=== PATIENT | female | born 1975 | race Caucasian/White ===

== ENCOUNTER 2017-06-22 09:15 | Outpatient (CLI) | payer OTHER | END 2017-06-22 14:50 | disposition home or self-care (01) | LOC: RAD 09:15 | DX: M99.01 Segmental and somatic dysfunction of cervical region (principal); M99.02 Segmental and somatic dysfunction of thoracic region; M99.03 Segmental and somatic dysfunction of lumbar region ==

== ENCOUNTER 2020-04-17 12:33 | Outpatient (CLI) | payer OTHER | END 2020-04-17 12:43 | disposition home or self-care (01) | LOC: RAD 12:33 | PROVIDERS: ATTEND Obstetrics & Gynecology Gynecology | DX: Z01.811 Encounter for preprocedural respiratory examination (principal) ==

== ENCOUNTER 2024-03-31 08:16 | Outpatient (CLI) | payer OTHER | END 2024-03-31 08:30 | disposition home or self-care (01) | LOC: RAD 08:16 | PROVIDERS: ATTEND Pediatrics | DX: R05.1 Acute cough (principal) ==